=== PATIENT | female | born 1985 | race African-American/Black ===

== ENCOUNTER 2024-06-19 17:38 | Emergency (ER) | payer MEDICAID, SELFPAY ==
[2024-06-19 17:51] VITALS: BP 139/81; PULSE 108; RESP 16; TEMP 37.8; O2SAT 98
--- NOTE | 2024-06-19 18:03 | ED.URI ---
HPI - URI/Sore Throat General Chief Complaint: Fever Stated Complaint: chills,fever,ear pain, throat hurts Time Seen by Provider: 06/19/24 18:04 Source: patient, RN notes reviewed and old records reviewed Mode of arrival: ambulatory Limitations: no limitations History of Present Illness HPI Narrative: patient presents with complaints of fever, chills, ear pain and sore throat. She reports symptoms have been present for about 3 days. she further complains of runny nose and postnasal drip. States symptoms are better today than they were at onset of illness. She has not taken any medications today. Says that she is feeling well at this time. Related Data Home Medications ?Medication ?Instructions ?Recorded ?Confirmed ?Last Taken ?Type No Home Medications 06/19/24 06/19/24 Unknown History Allergies Allergy/AdvReac Type Severity Reaction Status Date / Time No Known Allergies Allergy Verified 06/19/24 18:29 Review of Systems Review of Systems: All systems reviewed & are unremarkable except as noted in HPI and below Constitutional: Constitutional: Reports no additional constitutional complaints, Reports fever(s) and Reports headache(s) ENT: Reports system reviewed and no additional complaints, except as documented, Reports otalgia, Reports nasal discharge and Reports sore throat Cardiovascular: Cardiovascular: Reports no additional cardiovascular complaints Respiratory: Respiratory: Reports no additional respiratory complaints and Reports cough Gastrointestinal: Gastrointestinal: Reports no additional gastrointestinal complaints PMFSH Comments At the time of my signature, I reviewed and agree with the nursing past medical, surgical, social, and family history. There is no relevant family history pertinent to the patient complaint. Exam Const: General: cooperative, no acute distress, alert and awake Orientation/consciousness: oriented to person, oriented to place and oriented to time HENMT: Head: normal to inspection Ears: TM's normal bilaterally Mouth: Yes moist mucous membranes Throat: postnasal drainage Resp: Effort & Inspection: normal respiratory effort and able to speak in complete sentences Auscultation: clear to auscultation bilaterally, no crackles, no rales, no rhonchi and no wheezes Cardio: Palpation: normal PMI Rate: regular rate Rhythm: regular rhythm Heart sounds: S1 normal heart sound present and S2 normal heart sound present Neuro: General: oriented to person, oriented to place and oriented to time Cranial nerves: Yes CN's II-XII intact bilaterally Psych: Appearance: grossly normal Thought process: Normal thought process present Insight: Good insight present (Psych) Judgement: Good judgement present (Psych) Course Course Level of Care: Express Care Visit Vital Signs Vital signs: Vital Signs Temperature 100.0 F H 06/19/24 17:51 Pulse Rate 108 H 06/19/24 17:51 Respiratory Rate 16 06/19/24 17:51 Blood Pressure 139/81 06/19/24 17:51 Pulse Oximetry 98 06/19/24 17:51 Oxygen Delivery Room Air 06/19/24 17:51 Temperature 100.0 F H 06/19/24 17:51 Pulse Rate 108 H 06/19/24 17:51 Respiratory Rate 16 06/19/24 17:51 Blood Pressure 139/81 06/19/24 17:51 Pulse Oximetry 98 06/19/24 17:51 Oxygen Delivery Room Air 06/19/24 17:51 Reviewed MDM - URI/Sore Throat MDM Narrative Medical decision making narrative: Negative COVID, negative flu, negative strep. Patient nontoxic appearing, stable for discharge home with supportive care measures. Supportive care was discussed. Patient likely has viral illness. Feeling better now than at onset. Discharge instructions reviewed with patient, as well as provided in writing per nursing staff. The instructions also include specific and strict return/GO TO THE ER as well as f/u information. All questions have been answered, and the patient deny any further questions with discharge and discharge plan. Some parts of this dictation were generated by voice recognition software and may contain typographical and/or grammatical inaccuracies. Differential Diagnosis Differential diagnosis: Likely upper respiratory infection, otitis media, sinusitis, viral infection, bronchitis and influenza Medical Records Attestation: I reviewed the patient's medical records. Lab Data Attestation: I reviewed the patient's lab results. Discharge Plan Discharge Clinical Impression: Viral syndrome Patient Disposition: Home, Self-Care Condition: Stable Instructions: Antibiotic Form, Viral Syndrome (ED) Additional Instructions: use [id number] medications to treat symptoms. Follow with primary care provider. Emergency department for new or worse symptoms Patient Language: Croatian Prescriptions: No Action No Home Medications Follow-up/Referrals: PHYSICIAN NOT ON STAFF,NONSTAFF [Primary Care Provider] - Stand Alone Forms: Work/School Release IP Time of Disposition: 18:37
[2024-06-19 18:25] LABS: EDCOVIDSCREEN Negative (Negative)
[2024-06-19 18:26] LABS: EDINFLUASCREEN Negative (Negative); EDINFLUBSCREEN Negative (Negative)
== END 2024-06-19 18:40 | disposition home or self-care (01) ==
PROVIDERS: Emergency Provider Nurse Practitioner Family
DX: B34.9 Viral infection, unspecified (principal); Z20.822 Contact with and (suspected) exposure to COVID-19
CPT/HCPCS: 87426; 87804; 99203; G0463